=== PATIENT | female | born 1965 | race Caucasian/White ===

== ENCOUNTER 2020-01-21 11:50 | Outpatient (CLI) | payer OTHER ==
--- NOTE | 2020-02-18 10:52 | MMO ---
Bilateral MAMMO Bilat Screen [facility]. CLINICAL HISTORY: Patient is 55 years old and is seen for screening. The patient has no family history of breast cancer. The patient has no personal history of cancer. VIEWS: The views performed were: bilateral craniocaudal with tomosynthesis and bilateral mediolateral oblique with tomosynthesis. This study has been interpreted with the assistance of computer-aided detection. MAMMOGRAM FINDINGS: The breasts are heterogeneously dense, which could obscure a lesion on mammography. There are no suspicious masses, suspicious calcifications, or new areas of architectural distortion. IMPRESSION: THERE IS NO MAMMOGRAPHIC EVIDENCE OF MALIGNANCY. A ROUTINE FOLLOW-UP MAMMOGRAM IN 1 YEAR IS RECOMMENDED. THE RESULTS OF THIS EXAM WERE SENT TO THE PATIENT. ACR BI-RADS Category 1 - Negative MAMMOGRAPHY NOTE: 1. A negative mammogram report should not delay a biopsy if a dominant of clinically suspicious mass is present. 2. Approximately 10% to 15% of breast cancers are not detected by mammography. 3. Adenosis and dense breasts may obscure an underlying neoplasm. Reported by: TSERING PINO MD Electonically Signed: [id number]
== END 2020-01-21 11:51 | disposition home or self-care (01) ==
LOC: BICMAMMO 11:50
PROVIDERS: ATTEND Family Medicine
DX: Z12.31 Encounter for screening mammogram for malignant neoplasm of breast (principal)
CPT/HCPCS: 77063; 77067

== ENCOUNTER 2020-02-20 09:55 | Outpatient (CLI) | payer OTHER ==
--- NOTE | 2020-02-20 10:26 | ULT ---
ULTRASOUND ABDOMEN: HISTORY: Periumbilical pain, nausea, constipation FINDINGS: The liver demonstrates increased echogenicity consistent with fatty infiltration. The spleen, gallbla dder, kidneys and visualized portions of the aorta and IVC appear normal. The pancreas is suboptimally visualized due to overlying bowel gas. The common duct measures 3 mm in diameter. No fr ee fluid is seen. IMPRESSION: 1. Fatty liver 2. No evidence of cholelithiasis
== END 2020-02-20 09:56 | disposition home or self-care (01) ==
LOC: BICULT 09:55
PROVIDERS: ATTEND Internal Medicine Gastroenterology
DX: Z12.11 Encounter for screening for malignant neoplasm of colon (principal); R10.33 Periumbilical pain; R11.0 Nausea; R19.4 Change in bowel habit; K58.1 Irritable bowel syndrome with constipation; K76.0 Fatty (change of) liver, not elsewhere classified
CPT/HCPCS: 93975